=== PATIENT | female | born 1990 | race Caucasian/White ===

== ENCOUNTER 2022-03-21 14:46 | Outpatient (CLI) | payer OTHER, MEDICAID, SELFPAY ==
--- NOTE | ~2022-03-21 | US_ITS ---
EXAMINATION: US venous doppler LE LT DATE: 03/21/2022 16:01 INDICATION: HX OF THOMBOEMBOLISM, CONTUSION OF LT LEG, LT LEG PAIN . Lump noted in left leg. TECHNIQUE: Grayscale images without and with compression and Doppler images of the left lower extremi ty veins were obtained. COMPARISON: None FINDINGS: The left common femoral vein, profunda femoral vein, femoral vein, popliteal vein, peroneal vein, pos terior tibial veins, and greater saphenous vein are patent. 1.8 x 0.7 x 1.4 cm mixed hyper and hypoec hoic, fairly well-circumscribed ovoid lesion in the subcutaneous fat corresponding to the area of cli nical concern. No internal flow. IMPRESSION: 1. Patent left lower extremity veins. No evidence of deep venous thrombosis. 2. 1.8 cm heterogeneous, avascular subcutaneous lesion, may represent a contusion. Recommend clinical follow-up to ensure resolution. Reviewed, dictated and finalized at location K. ER OPERATOR IMPRESSION: 1. Patent left lower extremity veins. No evidence of deep venous thrombosis. 2. 1.8 cm heterogeneous, avascular subcutaneous lesion, may represent a contusi on. Recommend clinical follow-up to ensure resolution.
== END 2022-03-21 14:47 | disposition home or self-care (01) ==
LOC: ANHIMG 15:02
PROVIDERS: Visit Provider Obstetrics & Gynecology
DX: S80.12XA Contusion of left lower leg, initial encounter (principal); M79.605 Pain in left leg; Z86.718 Personal history of other venous thrombosis and embolism
CPT/HCPCS: 93971

== ENCOUNTER 2022-08-23 07:30 | Observation (INO) | payer OTHER, SELFPAY ==
--- NOTE | ~2022-08-23 | US_ITS ---
EXAMINATION: US OB limited w BPP DATE: 08/23/2022 09:10 INDICATION: Vaginal bleeding/spotting during third trimester TECHNIQUE: Real-time pelvic ultrasound was performed. The interpreting radiologist was not present fo r the study. COMPARISON: None. FINDINGS: There is a single living fetus in vertex presentation. The placenta is anterior with small central a nechoic venous sow. heart rate is 142 beats per minute (bpm). Biophysical profile performed by the technologist: breathing (30 sec sustained breathing in 30 minutes): 2 out of 2 movement (3 gross body movements in 30 minutes): 2 out of 2 tone (one episode of rucqjjm-fnfiqoovp-diaqbka limb movement): 2 out of 2 Amniotic fluid pocket (2 cm): 2 out of 2 Total score: 8 out of 8 IMPRESSION: 1. Single living fetus in vertex presentation with heart rate of 142 bpm. 2. Biophysical profile 8 out of 8. 3. Small central venous sow within the anterior placenta. Reviewed, dictated and finalized at location L.
[2022-08-23 08:31] VITALS: BP 133/84; PULSE 79
--- NOTE | 2022-09-10 13:31 | PM.OBTRLD ---
OB - Triage/Final Diagnosis Visit Information Comments/Additional reasons for admission: I have assessed the risk for this patient, Letitia Borrero, and determined that she would benefit from observation care. Final Diagnosis (1) Vaginal bleeding during : Code(s): O46.90 - Antepartum hemorrhage, unspecified, unspecified trimester Status: Acute
== END 2022-08-23 09:48 | disposition home or self-care (01) ==
PROVIDERS: Admitting Provider Obstetrics & Gynecology; Visit Provider Obstetrics & Gynecology
DX: O46.93 Antepartum hemorrhage, unspecified, third trimester (principal); O43.893 Other placental disorders, third trimester; Z3A.39 39 weeks gestation of pregnancy
CPT/HCPCS: 76815; 76819; G0378; G0379

== ENCOUNTER 2022-08-23 19:21 | Inpatient (IN) | payer OTHER, SELFPAY ==
[2022-08-23] VITALS (72 sets, daily range): BP systolic 90–141; BP diastolic 44–89; PULSE 63–116; RESP 18–20; TEMP 36.3; O2SAT 94–100; BMI 33.5
--- NOTE | 2022-08-23 19:59 | LDADM ---
This patient, Letitia Borrero, was admitted to Labor/Delivery/Recovery 106 on 08/23/22 at 19:21. Plans for labor, pain management and were discussed with patient. Patient/family oriented to hospital policies and general routines including ID bracelet, bed and alarms, visiting hours, pain management, procedures, bathroom and other care routines, personal items, smoking policy, room service/diet and guest tray routines, infant security routines, and visiting hours. Patient/Family are encouraged to report perceived risks to care and to ask questions if they do not understand what they are told or what they should do. See OBIX for further documentation.
[2022-08-23] MEDS: LACTATED RINGERS 1,000 ML 125 ML IV CONT ×2 (20:05→20:41)
[2022-08-23 20:13] LABS: Basophils Percent Auto 0.2 % (0.2-1.2); Eosinophils Percent Auto 0.2 % (0-4.4); Hematocrit 39.7 % (37.0-47.0); Hemoglobin 13.6 g/dL (12.0-15.0); Immature Granulocyte Absolute 0.13 K/mm3 (0.00-0.031); Immature Granulocyte Percent A 0.7 % (0-0.5); Lymphocytes Absolute Auto 2.08 K/mm3 (0.9-3.2); Lymphocytes Percent Auto 11.6 % (18.3-44.2); Mean Corpuscular HGB Conc 34.3 g/dl (32-36); Mean Corpuscular Hemoglobin 29.8 pg (26-34); Mean Corpuscular Volume 87.1 fl (80-100); Mean Platelet Volume 10.8 fl (7.4-10.4); Monocytes Absolute Auto 0.9 K/mm3 (0.1-0.6); Monocytes Percent Auto 5.2 % (2.6-8.5); Neutrophils Absolute Auto 14.7 K/mm3 (1.3-6.7); Neutrophils Percent Auto 82.1 % (45.5-73.1); Platelet Count Result 185 k/mm3 (150-375); Red Blood Count 4.56 M/mm3 (4.2-5.4); Red Cell Distribution Width 13.5 % (11.5-14.5); White Blood Count 17.9 K/mm3 (4.5-10.0)
--- NOTE | 2022-08-23 20:57 | WPDANESEPPF ---
Anes - Initial Pre Proc Eval Procedure: Labor Epidural Date/Time: 08/23/22 20:57 Surgeon: Becca Thacker MD Pre Op Diagnosis: Labor Pain Pre Op Diagnosis: Contractions Patient Data Age: 32 Gender: F Height: 1.75 m Weight: 103 kg Last Vital Signs Pulse 79 08/23/22 20:30 BP 125/81 08/23/22 20:30 Pulse Ox 100 08/23/22 20:55 O2 Del Method Room Air 08/23/22 19:56 Allergies Allergy/AdvReac Type Severity Reaction Status Date / Time peanut Allergy Watery Eye Verified 08/08/22 12:40 Home Medications Medication Instructions Recorded Confirmed Type enoxaparin 40 mg/0.4 mL 40 mg subcut Q12H 08/08/22 08/08/22 History subcutaneous syringe (Lovenox) prenat.vits,kanchan,adi-yblw-pnhbq 1 tablet PO DAILY 08/08/22 08/08/22 History Laboratory Tests 08/23/22 20:03 WBC 17.9 H K/mm3 (4.5-10.0) RBC 4.56 M/mm3 (4.2-5.4) Hgb 13.6 g/dL (12.0-15.0) Hct 39.7 % (37.0-47.0) MCV 87.1 fl (80-100) MCH 29.8 pg (26-34) MCHC 34.3 g/dl (32-36) RDW 13.5 % (11.5-14.5) Plt Count 185 k/mm3 (150-375) MPV 10.8 H fl (7.4-10.4) Immature Gran % (Auto) 0.7 H % (0-0.5) Neut % (Auto) 82.1 H % (45.5-73.1) Lymph % (Auto) 11.6 L % (18.3-44.2) Jay % (Auto) 5.2 % (2.6-8.5) Eos % (Auto) 0.2 % (0-4.4) Baso % (Auto) 0.2 % (0.2-1.2) Lymph # (Auto) 2.08 K/mm3 (0.9-3.2) Jay # (Auto) 0.9 H K/mm3 (0.1-0.6) Eos # (Auto) 0.0 K/mm3 (0-0.3) Baso # (Auto) 0.0 K/mm3 (0.0-0.1) Abs Immat Gran (auto) 0.13 H K/mm3 (0.00-0.031) Absolute Neuts (auto) 14.7 H K/mm3 (1.3-6.7) Absolute Nucleated RBC 0.0 K/mm3 (0.0-0.012) Nucleated RBC % 0.0 % (0.0-0.2) RPR Pending Patient hx anesthesia problems: none Family hx anesthesia problems: none Results Review: All pre-operative results and documents have been reviewed as part of the pre-operative evaluation. [facility] Family History Family History Father Diabetes mellitus Hypertension Grandparent Diabetes mellitus Hypertension Acute myocardial infarction Mother Hypothyroid Hypertension Social History Social History Smoking status: Never smoker Substance use: never Lack of Transportation: No Lack of Food: Never True Current Housing: I Have Housing Concerned About Future Housing: No Difficulty Paying Gas/Electric Bills: No Difficulty Paying for Meds: No Currently Unemployed: No Education: Master's Degree or Higher Difficulty w/ Childcare or Family Care: No Spiritual care concerns: No Anes - Eval Final PreProcedure Day of Procedure 08/23/22 20:57 Patient weight: normal Heart: regular rate and rhythm Lungs: clear to auscultation Neurological: alert and oriented ASA classification: III Anesthetic plan: proceed Anesthesia type and monitoring: regional epidural and standard monitoring Results Review: All pre-operative results and documents have been reviewed as part of the pre-operative evaluation. Informed Consent: The patient's anesthetic plan and its attendant risks and benefits were discussed with the patient/family/POA. Questions were solicited and answers provided to the satisfaction of the patient/family/POA. DVT History of Present Illness Does patient use anticoagulation agents: Yes
[2022-08-24] VITALS (115 sets, daily range): BP systolic 95–138; BP diastolic 47–84; PULSE 59–155; RESP 16–18; TEMP 36.3–37.1; O2SAT 95–100
[2022-08-24] MEDS: LACTATED RINGERS 1,000 ML 125 ML IV CONT (00:37)
[2022-08-24] MEDS: OXYTOCIN 30 UNITS/NS 500 ML 30 UNITS/500 ML BAG IV CONT (05:23)
--- NOTE | 2022-08-24 06:29 | PM.OBPRVD ---
OB - Delivery Note Procedure Delivery date: 08/24/22 Events: Other Induction method: None Delivery augmentation: Pitocin Delivery monitor: External FHT and External Uterine Route of delivery: Prior to decision for section, [facility] labor guidelines were considered and discussed with the patient and staff. Decision made to proceed with the section.: No Episiotomy description: None Laceration Description: Perineal - 2nd Degree Delivery repair: vicryl Quantitative Blood Loss (ml): 150 Anesthesia type: Epidural Disposition: Floor [place] Baby Date of : 08/24/22 Time of : 06:13 Weeks of gestation at delivery: 38 Infant gender: Male Weight (pounds): 7 Weight (ounces): 5 presentation: vertex Placenta delivery description: Spontaneous Cord Vessel Description: 3 Vessels score one minute: 8 score five minutes: 9
[2022-08-24] MEDS: OXYTOCIN 30 UNITS/NS 500 ML 30 UNITS/500 ML BAG 125 UNITS IV CONT (06:53)
[2022-08-24 10:30] LABS: Rapid Plasma Reagin Non-Reactive (NonReactive)
[2022-08-24] MEDS: ACETAMINOPHEN 325 MG TABLET 650 MG PO (14:22)
--- NOTE | 2022-08-24 16:15 | OBPPTRN ---
0900-Patient transferred to post room #276 via wheelchair. Support person present. Oriented to unit, room, information board, rooming in, admission packet and security measures. Patient verbalizes understanding.
[2022-08-24] MEDS: ENOXAPARIN 40 MG/0.4 ML SYRINGE SUB-Q (20:20)
[2022-08-25] MEDS: ACETAMINOPHEN 325 MG TABLET 650 MG PO (03:20)
[2022-08-25 04:39] LABS: Hematocrit 35.4 % (37.0-47.0); Hemoglobin 11.7 g/dL (12.0-15.0)
--- NOTE | 2022-08-25 07:49 | PM.OBPNVD ---
OB - PN: Subj Subjective Date/time seen: 08/25/22 07:49 s/p vaginal delivery day 1, doing well, flatus present, pain managed OB - PN: Obj Data Labs 08/25/22 03:25 Labs: Laboratory Results - last 24 hr 08/23/22 08/25/22 20:03 03:25 Hgb 11.7 L Hct 35.4 L RPR Non-reactive OB - PN A/P Plan day: 1 Plan: routine care Time Spent With Patient Time: Total time spent is greater than 50% in coordination of care (as documented) at patient's floor/unit and/or counseling patient: Review of Systems Review of Systems: All systems reviewed & are unremarkable except as noted in HPI and below Exam Const: General: cooperative, healthy appearing and comfortable Chest: Chest palpation & inspection: normal inspection of the chest Resp: Effort & Inspection: normal respiratory effort and able to speak in complete sentences GI: Other: firm at 1 below U Skin: General skin exam: normal color Extrem: Right lower extremity: normal to inspection Left lower extremity: normal to inspection Psych: Appearance: grossly normal
--- NOTE | 2022-08-25 08:09 | PM.OBDSVD ---
DS: Admitting Diagnosis Discharge Date 08/25/22 Admitting Diagnosis Labor DS: Discharge Diagnosis Discharge Diagnosis (1) Vaginal delivery: Code(s): O80 - Encounter for full-term uncomplicated delivery Status: Acute OB - DS: Summary OB Procedures : None OB Procedures Intrapartum: Spontaneous Vag Delivery OB Procedures: : None Time Spent with Patient Time attestation: Total time spent providing and/or coordinating discharge services: DS: Data Data Completed and Pending Labs on day of discharge: Labs from last 24 hours 08/25/22 08/23/22 03:25 20:03 Hgb 11.7 L Hct 35.4 L RPR Non-reactive Discharge Plan Discharge Attending physician on discharge: Marva Huertas Discharging Clinician: Moon Londono Patient Disposition: Home, Self-Care Activity: pelvic rest Diet: regular Patient Instructions: Antibiotic Form Stand Alone Forms: General Discharge Information Follow-up/Referrals: Marva Huertas MD [Physician] - 4 Weeks Discharge Medications: Continued enoxaparin [Lovenox] 40 mg/0.4 mL Syringe 40 mg SUBCUT Q12H prenat.vits,kanchan,otm-trpq-oktop Tablet 1 tablet PO DAILY Date of admission: 08/23/22 19:21 Primary Care Provider: PHYSICIAN NOT ON STAFF,NONSTAFF Admitting Provider: Becca Thacker Attending physician on admission: Becca Thacker Condition: Stable
[2022-08-25] MEDS: DOCUSATE SODIUM 100 MG CAPSULE PO (10:05)
[2022-08-25] MEDS: MULTIVIT/MIN/PREN/FOL AC/IRON TABLET 1 TAB PO (10:06)
[2022-08-25] MEDS: ENOXAPARIN 40 MG/0.4 ML SYRINGE SUB-Q (10:07)
[2022-08-25 11:02] VITALS: BP 132/74; PULSE 80; PULSE 86; RESP 16; TEMP 36.7; O2SAT 100; O2SAT 96
[2022-08-27 08:32] VITALS: BP 124/84; PULSE 95; RESP 18; TEMP 37.5
== END 2022-08-25 12:35 | disposition home or self-care (01) | DRG 807 ==
LOC: ANHLDR 19:41 → ANHOB2 08-25 08:08 → ANHLDR 08-27 11:20 → ANHOB2 08-27 11:20
PROVIDERS: Admitting Provider Obstetrics & Gynecology; Visit Provider Obstetrics & Gynecology
DX: O70.1 Second degree perineal laceration during delivery (principal); Z37.0 Single live birth; Z3A.38 38 weeks gestation of pregnancy; Z86.718 Personal history of other venous thrombosis and embolism
CPT/HCPCS: 36415; 76815; 76819; 85014; 85018; 85025; 86592; 86850; 86900; 86901; A9270; G0378; G0379; J1650; J2590; J2795; J7120

== ENCOUNTER 2022-08-27 08:55 | Outpatient (RCR) | payer OTHER, SELFPAY ==
--- NOTE | 2022-08-27 14:15 | PC.NURSE ---
In- 0855 Out- 1000 Reason for visit: Latch issues History: mother SROM on 08/23 and had her labor augmented on 08/24 delivering vaginally after 10+ hours of labor at 0613 on Saturday at 38 EGA. Mother's delivery was unremarkable with QBL 150mls. Medications: Lovenox and PNV. Mhx of factor 5, MTHFR. No LC consult while admit related to a PTO day. There was separation of and mother for weight and was suctioned. Infant was encouraged with a nipple shield for latching at the first feeding. Mother has smooth nipples, charting shows infant was reluctant to latch, and pumping was initiated to protect mothers milk supply. Infant was also syringe fed while at the hospital. Mother states breast milk is coming to volume today. At the follow up visit infant weight was down 4/35%. Mother seeks consult after the follow up visit as she has not been putting to the breast and desires to breastfeed. Mother has been practicing pumping and feeding breast milk (30-60mls each breast), then supplementing with formula as needed. Mother is feeding 45mls every 3 hours. # wets 7 in 24 hours with 6 seedy stool diapers. TCB at follow up did not require a serum to be drawn and Dr. Abdullahi was notified. Observations: Mother works well with infant. Infant opens wide, takes a few sucks, then detaches. During a couple of rare moments latched effectively for a couple of minutes, then detached. Mother did not bring her nipple shield today. We reviewed care, usage, application, along with the risks, benefits, and goals for use. Mother supplemented with a formula bottle as she did not bring her pump or a pump kit. weight: 7-5 (3330g) Lowest weight: 7-1.3 (3185g) Last weight: 3185g today Pre-feed weight: 3177g after a void Post-feed weight: Not done as mother supplemented with formula and infant did not maintain latch for more than 2 minutes. Plan of Care: Education practiced of how to effectively latch , how an effective latch feels versus shallow, how to watch/listen for swallowing, tips and techniques balanced with mother's self care. Follow up plans: Mother given instructions on when to contact ICP with follow up discharge instructions and consult regarding , how to prevent, treat, and call OB for mastitis. Outpatient services provided.
== END 2022-11-25 23:59 | disposition home or self-care (01) ==
LOC: ANHOBOP 08:55
PROVIDERS: Visit Provider Pediatrics
DX: Z39.1 Encounter for care and examination of lactating mother (principal)
CPT/HCPCS: 99213; G0463

== ENCOUNTER 2022-10-14 10:26 | Emergency (ER) | payer OTHER, SELFPAY ==
--- NOTE | ~2022-10-14 | US_ITS ---
US breast LT complete DATE: 10/14/2022 13:54 INDICATION: Warmth and erythema of the left breast TECHNIQUE: Complete left breast ultrasound imaging including all 4 quadrants and subareolar area COMPARISON: None FINDINGS: No solid mass or suspicious shadowing or abscess is detected. IMPRESSION: Negative Reviewed, dictated and finalized at Location A. Reviewed, dictated and finalized at location A. IMPRESSION: Negative
--- NOTE | ~2022-10-14 | XR_ITS ---
XR chest 2V DATE: 10/14/2022 13:46 INDICATION: Fever. Mastitis. TECHNIQUE: PA and lateral views COMPARISON: None FINDINGS: Normal heart size. No hilar or mediastinal enlargement. No pulmonary infiltrate or consolid ation, pleural effusion or pulmonary vascular congestion or pneumothorax. Included skeletal structure s are unremarkable. IMPRESSION: Negative Reviewed, dictated and finalized at location A. IMPRESSION: Negative
[2022-10-14 11:29] VITALS: BP 140/71; PULSE 116; RESP 19; TEMP 37.6; O2SAT 98
--- NOTE | 2022-10-14 13:56 | ED.GENADULT ---
HPI - General Adult General Chief complaint: Unspecified Stated complaint: fever, nausea, left breast pain (mastitis?) Time Seen by Provider: 10/14/22 13:25 Source: patient and RN notes reviewed Mode of arrival: ambulatory Limitations: no limitations History of Present Illness HPI narrative: This is a 32 year old female who presents for evaluation of chills, fever, and left breast pain. Patient states 3 weeks ago he had bilateral breast soreness. Her OBGYN thought she had yeast infection so she was placed on an antibiotic . She is unaware of the name. She states she finished this medication 2 days ago. She woke up today with chills, nausea, vomiting x 1, left breast redness and fever of 102F. She has mild dizziness and denies nausea at this time. SHe denies URI symptoms Related Data Home Medications Medication Instructions Recorded Confirmed enoxaparin 40 mg/0.4 mL 40 mg subcut Q12H 08/08/22 08/08/22 subcutaneous syringe (Lovenox) prenat.vits,kanchan,zat-qaay-icprk 1 tablet PO DAILY 08/08/22 08/08/22 Allergies Allergy/AdvReac Type Severity Reaction Status Date / Time peanut Allergy Watery Eye Verified 08/08/22 12:40 Review of Systems Constitutional: Constitutional: Reports chills, Reports fever(s) and Denies weakness ENT: Denies nasal congestion, Denies sinus pressure and Denies sore throat Cardiovascular: Cardiovascular: Denies syncope, Denies rapid heart rate, Denies irregular heart rhythm, Denies leg edema and Denies dyspnea Respiratory: Respiratory: Denies chest congestion, Denies hemoptysis, Denies excessive phlegm production and Denies dyspnea Gastrointestinal: Gastrointestinal: Denies abdominal pain, Denies hematochezia, Denies diarrhea, Reports nausea and Reports vomiting Genitourinary: Genitourinary: Denies hematuria and Denies dysuria Musculoskeletal: Musculoskeletal: Denies joint swelling, Denies loss of height and Denies muscle weakness Integumentary/Breasts: Skin/Breast: Reports breast swelling and Reports breast pain Neurologic: Denies syncope, Denies focal weakness and Denies weakness [facility] Family History Family History Father Diabetes mellitus Hypertension Grandparent Diabetes mellitus Hypertension Acute myocardial infarction Mother Hypothyroid Hypertension Social History Social History Smoking status: Never smoker Substance use: never Lack of Transportation: No Lack of Food: Never True Current Housing: I Have Housing Concerned About Future Housing: No Difficulty Paying Gas/Electric Bills: No Difficulty Paying for Meds: No Currently Unemployed: No Education: Master's Degree or Higher Difficulty w/ Childcare or Family Care: No Spiritual care concerns: No Exam Narrative: GENERAL: Well-appearing, well-nourished, and in no acute distress. HEAD: Normocephalic, atraumatic EYES: PERRLA and EOMI, conjunctiva clear without discharge EARS: TM's clear bilaterally without erythema or dullness NOSE: Nares clear, no rhinorrhea or epistaxis THROAT:Mucous membranes moist, Oropharynx normal without erythema, exudate, peritonsillar swelling or fluctuance NECK: Supple, without lymphadenopathy or mass RESPIRATORY: No respiratory distress, Airway patent, Respirations non-labored, Clear to auscultation without rales, rhonchi or wheeze HEART: Tachycardic rate and regular rhythm. No murmur heard. Normal peripheral pulses. ABDOMEN: Soft, nontender, nondistended, normal active bowel sounds. No masses. No rebound or guarding, No organomegaly. EXTREMITIES: No edema, normal strength with full range of motion. SKIN: Warm, dry, ; left breast medial redness, no signicant swelling, no purulent discharge NEURO: Alert and oriented x3. CN 2-12 grossly intact. No focal deficits. PSYCH: Normal mood and affect. Course Reevaluation(s) Reevaluation #1: Viktoriya
[2022-10-14] MEDS: SODIUM CHLORIDE 0.9% IV 1,000 ML 999 ML IV CONT ×2 (14:25→16:18)
[2022-10-14] MEDS: ACETAMINOPHEN 325 MG TABLET 650 MG PO (14:25)
[2022-10-14 14:33] LABS: Basophils Percent Auto 0.2 % (0.2-1.2); Hematocrit 41.6 % (37.0-47.0); Hemoglobin 13.7 g/dL (12.0-15.0); Immature Granulocyte Percent A 0.6 % (0-0.5); Lymphocytes Absolute Auto 0.66 K/mm3 (0.9-3.2); Lymphocytes Percent Auto 3.8 % (18.3-44.2); Mean Corpuscular HGB Conc 32.9 g/dl (32-36); Mean Corpuscular Hemoglobin 28.8 pg (26-34); Mean Corpuscular Volume 87.6 fl (80-100); Mean Platelet Volume 10.7 fl (7.4-10.4); Monocytes Percent Auto 5.6 % (2.6-8.5); Neutrophils Absolute Auto 15.7 K/mm3 (1.3-6.7); Neutrophils Percent Auto 89.8 % (45.5-73.1); Platelet Count Result 148 k/mm3 (150-375); Red Blood Count 4.75 M/mm3 (4.2-5.4); Red Cell Distribution Width 12.7 % (11.5-14.5); White Blood Count 17.5 K/mm3 (4.5-10.0)
[2022-10-14 14:44] LABS: Alanine Aminotransferase 58 U/L (6-35); Albumin Level 4.1 g/dL (3.5-5.1); Alkaline Phosphatase 59 U/L (38-126); Anion Gap 7 mmol/L (8-16); Aspartate Amino Transferase 28 U/L (14-36); Bilirubin,Total 0.7 mg/dL (0.2-1.3); Blood Urea Nitrogen 15 mg/dL (7-17); Calcium 9.2 mg/dL (8.4-10.2); Carbon Dioxide 29 mmol/L (22-30); Chloride 100 mmol/L (98-107); Estimated CRCL calculation 100 ml/min; Estimated Glomerular Filt Rate > 60; Glucose 109 mg/dL (65-110); Sodium 136 mmol/L (137-145)
[2022-10-14 14:45] LABS: Prothrombin Time 13.4 Seconds (11.1-14.7)
[2022-10-14 14:46] LABS: Partial Thromboplastin Time 29.6 SECONDS (22.3-36.8)
[2022-10-14 15:09] LABS: Influenza A QL RT-PCR Negative (Negative); Influenza B QL RT-PCR Negative (Negative); SARS-CoV-2 RNA PCR Negative (Negative)
[2022-10-14 15:26] VITALS: BP 106/59; PULSE 102; RESP 18; TEMP 37.5; O2SAT 97
[2022-10-14] MEDS: ceFAZolin 1 GM/NS 50 ML 1 GM/50 ML BAG IVPB (15:27)
[2022-10-14] MEDS: IBUPROFEN 400 MG TABLET PO (16:18)
[2022-10-14 16:31] VITALS: BP 113/57; PULSE 104; RESP 16; O2SAT 96
== END 2022-10-14 16:57 | disposition home or self-care (01) ==
PROVIDERS: Emergency Provider General Practice
DX: N61.0 Mastitis without abscess (principal); Z20.822 Contact with and (suspected) exposure to COVID-19
CPT/HCPCS: 36415; 71046; 76641; 80053; 83605; 85025; 85610; 85730; 87636; 96361; 96365; 99284; A9270; J0690; J7030

== ENCOUNTER 2023-11-11 10:30 | Outpatient (RCR) | payer OTHER, SELFPAY ==
[2023-11-11 11:23] VITALS: BP 117/70; PULSE 80
== END 2024-02-09 23:59 | disposition home or self-care (01) ==
LOC: ANHOBOP 10:30
PROVIDERS: Visit Provider Obstetrics & Gynecology
DX: O36.8320 Maternal care for abnormalities of the fetal heart rate or rhythm, second trimester, not applicable or unspecified (principal); Z3A.23 23 weeks gestation of pregnancy
CPT/HCPCS: 59025

== ENCOUNTER 2024-03-02 06:22 | Inpatient (IN) | payer OTHER, SELFPAY ==
[2024-03-02] VITALS (116 sets, daily range): BP systolic 83–157; BP diastolic 51–100; PULSE 68–101; RESP 20; TEMP 36.2–37.5; O2SAT 90–100; BMI 38.9
[2024-03-02 07:02] LABS: Basophils Percent Auto 0.2 % (0.2-1.2); Eosinophils Absolute Auto 0.1 K/mm3 (0-0.3); Hematocrit 39.6 % (37.0-47.0); Hemoglobin 13.2 g/dL (12.0-15.0); Immature Granulocyte Absolute 0.06 K/mm3 (0.00-0.031); Immature Granulocyte Percent A 0.6 % (0-0.5); Lymphocytes Absolute Auto 2.29 K/mm3 (0.9-3.2); Lymphocytes Percent Auto 21.3 % (18.3-44.2); Mean Corpuscular HGB Conc 33.3 g/dl (32-36); Mean Corpuscular Hemoglobin 29.2 pg (26-34); Mean Corpuscular Volume 87.6 fl (80-100); Mean Platelet Volume 11.7 fl (7.4-10.4); Monocytes Absolute Auto 0.8 K/mm3 (0.1-0.6); Monocytes Percent Auto 7.4 % (2.6-8.5); Neutrophils Absolute Auto 7.5 K/mm3 (1.3-6.7); Neutrophils Percent Auto 69.5 % (45.5-73.1); Platelet Count Result 161 k/mm3 (150-375); Red Blood Count 4.52 M/mm3 (4.2-5.4); Red Cell Distribution Width 14.2 % (11.5-14.5); White Blood Count 10.8 K/mm3 (4.5-10.0)
--- NOTE | 2024-03-02 07:03 | LDADM ---
This patient, Letitia Borrero, was admitted to Labor/Delivery/Recovery 106 on 03/02/24 at 06:22. Plans for labor, pain management and were discussed with patient. Patient/family oriented to hospital policies and general routines including ID bracelet, bed and alarms, visiting hours, pain management, procedures, bathroom and other care routines, personal items, smoking policy, room service/diet and guest tray routines, infant security routines, and visiting hours. Patient/Family are encouraged to report perceived risks to care and to ask questions if they do not understand what they are told or what they should do. See OBIX for further documentation.
[2024-03-02] MEDS: LACTATED RINGERS 1,000 ML 125 ML IV CONT ×2 (07:15→11:31)
[2024-03-02] MEDS: OXYTOCIN 30 UNITS/NS 500 ML 30 UNITS/500 ML BAG IV CONT (07:15)
[2024-03-02 07:55] LABS: HIV 1/2 Ab P24 Ag Result Negative (Negative)
[2024-03-02 07:59] LABS: Rapid Plasma Reagin Non-Reactive (NonReactive)
--- NOTE | 2024-03-02 09:51 | P.HPUP_ITS ---
History and Physical Update Update Date/Time: 03/02/24 09:51 33-year-old multiparous at term with thrombophilia. Discontinue Lovenox yesterday. Elective induction timed to manage thrombophilia. Reassuring heart tones. Artificial rupture membranes- clear. 4 cm, 50%, -2. Active management of labor. History and Physical has been reviewed, including an updated exam of the patient. There are NO changes in the patient's condition. Risks, benefits, and alternatives have been discussed and questions answered. Patient agrees to proceed with procedure.
--- NOTE | 2024-03-02 15:12 | PM.OBPRVD ---
OB - Vaginal Delivery Note Procedure Delivery date: 03/02/24 Induction method: AROM and Per Pitocin Protocol Delivery monitor: External FHT and External Uterine Route of delivery: Episiotomy description: None Laceration Description: Periurethral Delivery repair: vicryl Quantitative Blood Loss (ml): 150 Anesthesia type: Epidural Disposition: Floor Complications: No immediate complications Baby Date of : 03/02/24
[2024-03-02] MEDS: OXYTOCIN 30 UNITS/NS 500 ML 30 UNITS/500 ML BAG 125 UNITS IV CONT (15:32)
[2024-03-02] MEDS: WITCH HAZEL 40 PADS 1 PAD TOPICAL (18:12)
[2024-03-02] MEDS: BENZOCAINE 20% AER SPR (*SP) 56 GM CAN 1 SPRAY TOPICAL (18:12)
--- NOTE | 2024-03-02 18:25 | OBPPTRN ---
Patient transferred to post room #281 via wheelchair. Support person present. Oriented to unit, room, information board, rooming in, admission packet and security measures. Patient verbalizes understanding.
[2024-03-02] MEDS: ENOXAPARIN 40 MG/0.4 ML SYRINGE SUB-Q (21:05)
[2024-03-03 04:41] LABS: Hematocrit 37.8 % (37.0-47.0); Hemoglobin 12.6 g/dL (12.0-15.0)
[2024-03-03 07:30] VITALS: BP 140/81; PULSE 86; RESP 18; TEMP 36.6; O2SAT 98
--- NOTE | 2024-03-03 08:30 | PC.NURSE ---
Introductions were made, then consulted with patient to assess needs related to . Mother led the conversation with her?plans to feed?her infant and the?experience so far. Mother has been exclusively putting infant to breast for feedings and states that the latch has been painful- she did attempt to breastfeed her 18 month old son and was unsuccessful. Mother instructed to call this RN for assistance with next feeding to assess latch. Encouraged understanding of the benefits of skin to skin, stimulating with massage touch, changing positions to encourage wakefulness, how to watch for early feeding cues, responsive feeding, feeding on demand (aiming for 8-12 times in 24 hours, about every 2-3 hours), milk production, building/maintaining a milk supply, duration of feeding, signs of adequate intake/output and how to record on the feeding sheet. Mother works well with her . Contact information written on the communication board.
--- NOTE | 2024-03-03 08:56 | PC.NURSE ---
Patient viewed the discharge video Mother & Baby Care, The First Two Weeks . Patient was given the opportunity and encouraged to ask questions. Patient verbalized understanding of information shared and has been given the mother/baby guide for home reference.
--- NOTE | 2024-03-03 09:30 | PC.NURSE ---
Called to patient room to assist with latch. Upon entering room, was in a deep sleep. Attempts were made to fully awake for feeding but attempts were unsuccessful. placed skin to skin with mother and this RN will return in 30 minutes (or sooner, if awakes on his own) to assist with latch.
[2024-03-03] MEDS: MULTIVIT/MIN/PREN/FOL AC/IRON TABLET 1 TAB PO (09:52)
[2024-03-03] MEDS: ENOXAPARIN 40 MG/0.4 ML SYRINGE SUB-Q (09:52)
--- NOTE | 2024-03-03 11:45 | PC.NURSE ---
Called to patient room to assist with latch. Upon entering room, was sleeping. was undressed and immediately woke to nurse. Once was awake, was placed in football position on mothers right breast. Mother states that there is minimal pain when infant was latched but this is likely related to poor latch with prior feedings. Infant is latched appropriately and latch is deep. Swallows noted. 5 minutes of the feeding was witnessed by this RN and infant remained at the breast actively nursing.
--- NOTE | 2024-03-03 12:05 | P.DS_ITS ---
DS: Admitting Diagnosis Discharge Date 03/03/2024 Admitting Diagnosis term DS: Discharge Diagnosis Discharge Diagnosis (1) Term delivered: Code(s): O80 - Encounter for full-term uncomplicated delivery Status: Acute (2) Thrombophilia: Code(s): D68.59 - Other primary thrombophilia Status: Acute OB - DS: Summary OB Procedures : None OB Procedures Intrapartum: Spontaneous Vag Delivery OB Procedures: : None Peripartum Data Laceration Description: Periurethral Episiotomy description: None Time Spent with Patient Time attestation: Total time spent providing and/or coordinating discharge services: DS: Data Data Completed and Pending Labs on day of discharge: Labs from last 24 hours 03/03/24 03:20 Hgb 12.6 Hct 37.8 Discharge Plan Discharge Discharging Clinician: Anupam Huertas Patient Disposition: Home, Self-Care Activity: pelvic rest Diet: regular Discharge Instructions: FEEDING PLAN: Your baby is exclusively at discharge. Your baby needs to feed 8- 12 times every 24 hours. You may have to wake your baby to feed. Signs that your baby is effectively : * Yellow, seedy stools by day 5 * Healthy weight gain (back at weight by 2 weeks old) * Enough urine output (6 wets per day by day 6 of life) * 8 or more times every 24 hours * Mother able to hear swallowing when (?ka? sound) If infant is not meeting these guidelines, you may need to start supplementing. You can use pumped breastmilk or formula. IF BABY IS NOT SATISFIED OR NOT HAVING THE REQUIRED WET DIAPERS FOR THEIR DAYS OLD, YOU SHOULD INCREASE THE FREQUENCY AND SUPPLEMENTATION VOLUME. NOTIFY YOUR BABY?S DOCTOR IF YOUR BABY DOES NOT HAVE THE REQUIRED URINE OUTPUT. If is not effectively , you should pump after each or attempt. Pump each breast for 10-15 minutes. Pumping will help stimulate your breasts to produce milk. Follow the collection and storage sheet given to you in the Mom and Baby Guide. Remember to keep track of all feedings/elimination on the blue worksheet provided. Your baby should be supplemented with pumped breastmilk first. Formula may be used in addition to breastmilk if needed. You should supplement with: * At least 20-30 ml * It is ok to give more supplementation (breastmilk or formula) if seems unsatisfied or continues to show feeding cues after feeding. Continue supplementation until your baby has been evaluated by your bass guitar teacher. Ways to increase your milk supply: * Increase frequency of or pumping * Lots of skin to skin, especially before or pumping * Pump in the morning, most moms have more milk then * Use warm washcloths and breast massage before pumping * Set your pump to the highest comfortable suction level, pumping should not hurt You may contact the Team at [phone] for questions and appointments. These discharge instructions have been explained to me and I have received a copy. Patient Instructions: Antibiotic Form Stand Alone Forms: General Discharge Information Follow-up/Referrals: Anupam Huertas MD [Physician] - Discharge Medications: Continued enoxaparin [Lovenox] 40 mg/0.4 mL Syringe 40 mg SUBCUT Q12H prenat.vits,kanchan,smk-xema-jpfxo Tablet 1 tablet PO DAILY Date of admission: 03/02/24 06:22 Primary Care Provider: PHYSICIAN NOT ON STAFF,NONSTAFF Admitting Provider: Anupam Huertas Attending physician on admission: Anupam Huertas Condition: Stable
--- NOTE | 2024-03-03 12:05 | PM.OBPNVD ---
OB - PN: Subj Subjective Date/time seen: 03/03/24 12:05 Patient comments: no complaints, pain well controlled, incisional pain, tolerating diet and flatus present OB - PN: Obj Data Labs 03/03/24 03:20 Labs: Laboratory Results - last 24 hr 03/03/24 03:20 Hgb 12.6 Hct 37.8 OB - PN A/P Plan day: 1 Plan: routine care Comments: No problems, routine care Time Spent With Patient Time: Total time spent is greater than 50% in coordination of care (as documented) at patient's floor/unit and/or counseling patient: Exam Const: General: comfortable, no acute distress and alert Resp: Effort & Inspection: normal respiratory effort Auscultation: no crackles, no rales and no rhonchi Cardio: Rate: regular rate Heart sounds: no click, no murmurs and no rubs GI: Inspection: non-distended GI Palp: No Tenderness to palpation present (GI) Auscultation: normal bowel sounds Other: Incision - CDI Extrem: General: normal to inspection, no pedal edema and no calf tenderness
[2024-03-03] MEDS: IBUPROFEN 600 MG TABLET PO (12:22)
[2024-03-03 12:27] VITALS: BP 126/77; PULSE 86; RESP 16; TEMP 36.6; O2SAT 97
[2024-03-05 11:25] VITALS: BP 119/76; PULSE 81; RESP 16; TEMP 36.8; O2SAT 97
== END 2024-03-03 17:25 | disposition home or self-care (01) | DRG 806 ==
LOC: ANHLDR 06:25 → ANHOB2 19:40
PROVIDERS: Admitting Provider Obstetrics & Gynecology; Visit Provider Obstetrics & Gynecology
DX: O99.12 Other diseases of the blood and blood-forming organs and certain disorders involving the immune mechanism complicating childbirth (principal); D68.59 Other primary thrombophilia; Z37.0 Single live birth; Z3A.39 39 weeks gestation of pregnancy; O70.0 First degree perineal laceration during delivery; O69.81X0 Labor and delivery complicated by cord around neck, without compression, not applicable or unspecified; O71.82 Other specified trauma to perineum and vulva
CPT/HCPCS: 36415; 85014; 85018; 85025; 86592; 86703; 86850; 86900; 86901; A9270; G0432; J1650; J2590; J2795; J7120